=== PATIENT | male | born 1945 | race Caucasian/White ===

== ENCOUNTER → 2023-12-03 07:00 | Outpatient (REF) | payer OTHER, SELFPAY | LOC: MRI 07:00 | PROVIDERS: ATTENDING PHYSICIAN Physician Assistant; FAMILY PHYSICIAN Family Medicine | DX: M25.061 Hemarthrosis, right knee (principal) | CPT/HCPCS: 73721 ==

== ENCOUNTER → 2024-01-14 06:38 | Outpatient (REF) | payer OTHER, SELFPAY | LOC: MRI 3T 06:38 | PROVIDERS: ATTENDING PHYSICIAN Physician Assistant; FAMILY PHYSICIAN Family Medicine | DX: M54.16 Radiculopathy, lumbar region (principal) | CPT/HCPCS: 72148; 73721 ==